=== PATIENT | female | born 1975 | race Caucasian/White ===

== ENCOUNTER 2016-08-04 05:11 | Day surgery (SDC) | payer OTHER ==
[2016-07-31 12:20] LABS: BASOPHILS 0.3 %; BASOPHILS ABSOLUTE 0.02 10/3/uL (0.0-0.16); EOSINOPHILS 1.5 %; HEMATOCRIT 40.5 % (36.0-48.0); HEMOGLOBIN 13.3 g/dL (12.0-16.0); IMMATURE GRANULOCYTES 0.2 %; IMMATURE GRANULOCYTES ABSOLUTE 0.01 10/3/uL (0.0-0.11); LYMPHOCYTES 23.1 %; MEAN CORPUS HGB CONC 32.8 g/dL (32.0-36.0); MEAN CORPUSCULAR HEMOGLOB 31.6 pg (26.0-34.0); MEAN CORPUSCULAR VOLUME 96.2 fL (80-100); MEAN PLATELET VOLUME 11.8 fL (9.2-13.0); MONOCYTES ABSOLUTE 0.52 10/3/uL (0.21-1.20); NEUTROPHILS 66.9 %; NEUTROPHILS ABSOLUTE 4.34 10/3/uL (2.02-8.40); PLATELET COUNT 241 10/3/uL (150-400); RED CELL COUNT 4.21 10/6/uL (4.0-5.6)
[2016-07-31 12:22] LABS: MANUAL DIFF NO %; WHITE BLOOD CELLS 6.5 10/3/uL (4.5-10.5)
[2016-07-31 12:36] LABS: A/G RATIO 1.1 (0.7-1.9); ALBUMIN 3.9 G/DL (3.5-5.0); ALKALINE PHOSPHATASE 68 U/L (45-117); BUN (BLOOD UREA NITROGEN) 16 MG/DL (6-23); CALCIUM, SERUM 9.1 MG/DL (8.5-10.4); CHLORIDE, SERUM 107 MMOL/L (96-112); CO2 (CARBON DIOXIDE) 27 MMOL/L (24-34); CREATININE 0.76 MG/DL (0.55-1.02); GFR AFRICAN AMERICAN 114 ML/MIN (>=60); GFR NON AFRICAN AMERICAN 98 ML/MIN (>=60); GLOBULIN 3.4 G/DL (2.5-4.1); GLUCOSE, SERUM 74 MG/DL (60-99); POTASSIUM, SERUM 3.9 MMOL/L (3.5-5.3); SGOT(AST) 15 U/L (5-40); SGPT(ALT) 20 U/L (5-65); SODIUM, SERUM 141 MMOL/L (135-148); TOTAL BILIRUBIN 0.4 MG/DL (0-1.2); TOTAL PROTEIN 7.3 G/DL (6.0-8.5)
--- NOTE | ~2016-08-04 | PREOPHP ---
PreOp History and Physical [address] [place]. [address] NAME: KOLBY RUIZ : 77 STATUS : REG [facility]#: [id number] AGE: 41 ADM/REG DATE : 08/04/16 MR#: [id number] REPORT SERV DATE: 08/04/16 DICTATED BY: JOSSY PIMENTEL III DATE: 06/30/16 REPORT STATUS : Draft TRANSCRIBED BY: MODEl DATE: 06/30/16 HISTORY OF PRESENT ILLNESS: This 41-year-old female comes to the operating room for repair of a symptomatic ventral hernia. The patient has a tender mass over her anterior abdomen. This is located about 3 cm above the navel and just to the left of the midline. The mass is symptomatic in terms of local pain and discomfort. That has been present for one year. That has been increasing in size. The patient states the mass is occasionally reducible. This is felt most likely to be a chronically incarcerated epigastric ventral hernia, versus less likely a lipoma. The patient comes now for repair of the hernia or resection of a lipoma if found. PAST MEDICAL HISTORY: 1. Hypothyroidism. 2. Anxiety. MEDICATIONS: 1. Levothyroxine. 2. Fluoxetine. ALLERGIES: NONE. PAST SURGICAL HISTORY: 1. Status post breast augmentation. 2. section. FAMILY HISTORY: Positive for diabetes. SOCIAL HISTORY: No tobacco or alcohol use. REVIEW OF SYSTEMS: The patient complains of weight gain. Her 14-point review of systems is otherwise unremarkable. PHYSICAL EXAMINATION: GENERAL: This is a female, in no acute distress. She is alert and oriented x3. VITAL SIGNS: Blood pressure 108/71, pulse 69, and temperature 97.1. HEENT: Unremarkable. Cranial nerves 2 through 12 are normal. LUNGS: Clear. CARDIAC: Normal. ABDOMEN: Soft and nontender except for tender mass just above the navel slightly to the midline. It is partly, but not completely reducible. EXTREMITIES: Normal. ASSESSMENT: 1. A 41-year-old female with tender, probably chronic incarcerated epigastric ventral PreOp History and Physical [address] [place]. [address] NAME: KOLBY RUIZ : 77 STATUS : REG [facility] [place] PAT#: [id number] AGE: 41 ADM/REG DATE : 08/04/16 MR#: [id number] REPORT SERV DATE: 08/04/16 DICTATED BY: JOSSY PIMENTEL III DATE: 06/30/16 REPORT STATUS : Draft TRANSCRIBED BY: CLARICE DATE: 06/30/16 hernia, versus less likely lipoma. 2. Hypothyroidism. 3. Anxiety. PLAN: The patient comes to the operating room now for repair of this hernia versus resection of a mass if identified, depending on operative findings. This procedure, the risks, benefits, and alternatives, including not limited to the risk for bleeding, infection, enterotomy, injury to any abdominal structure, recurrence of the hernia if present, seroma formation, hematoma formation, and unforeseen complications including deep venous thrombosis, pulmonary embolus, myocardial infarction, stroke, pneumonia, and , have been explained to the patient fully. Her questions have been answered. She clearly understands the risks and agrees to surgery as planned. RHJ/CLARICE Jossy Pimentel III, M.D. / [id number]
--- NOTE | ~2016-08-04 | OP ---
Record Of Operation [facility] [address] [place]. [address] NAME: KOLBY RUIZ : 77 [place]US [place] [facility] [place]#: [id number] AGE: 41 ADM/REG DATE : 08/04/16 MR#: [id number] REPORT SERV DATE: 08/04/16 DICTATED BY: JOSSY BLAKE III DATE: 08/04/16 REPORT STATUS : Draft TRANSCRIBED BY: MODEl DATE: 08/04/16 DATE OF PROCEDURE: 08/04/2016 PREOPERATIVE DIAGNOSIS: Symptomatic ventral hernia. POSTOPERATIVE DIAGNOSIS: Symptomatic ventral hernia. PROCEDURE: Repair of ventral hernia or epigastric hernia. SURGEON: Jossy Blake M.D. ANESTHESIA: General with intubation. COMPLICATIONS: None. ESTIMATED BLOOD LOSS: Less than 5 mL. SPECIMENS: None. DRAINS: None. LAP AND SPONGE COUNT: Correct x3. BRIEF HISTORY: This 41-year-old female presented with a symptomatic ventral or epigastric hernia, located several centimeters above the navel. It was felt that repair of this was indicated. This procedure, the risks, benefits, and alternatives including, but not limited to the risk for bleeding, infection, enterotomy, injury to any abdominal structure, postop small bowel obstruction, ileus, seroma formation, hematoma formation, recurrence of the hernia, possible need for use of mesh, risk of infection of the mesh or enterocutaneous fistula requiring removal of the mesh, and unforeseen complications including deep venous thrombosis, pulmonary embolus, myocardial infarction, stroke, pneumonia, and were fully explained to the patient prior to surgery. Her questions were answered. She understood the risks and agreed to the surgery as planned. FINDINGS: The patient had a small ventral or epigastric hernia with incarcerated preperitoneal fat, located several centimeters above the navel. The fascial defect itself was small and mesh repair was not required. DESCRIPTION OF PROCEDURE: After being properly identified and after discussing the risks and benefits of surgery with the patient and family again in the preoperative area, and carefully marking the hernia with a skin marker with her help in the preoperative area, the patient was taken to the operating room and placed in the supine position on the operating room table. General anesthesia was administered, and she was intubated without difficulty. The abdomen was prepped and draped sterilely in the usual fashion. After an appropriate "time-out" per [facility] standards, a small vertical incision was made directly over the hernia in the midline several centimeters above the navel. The incision was continued through the Record Of Operation [address] [place]. [address] NAME: KOLBY RUIZ : 77 [place]US : [place] [facility] [place]#: [id number] AGE: 41 ADM/REG DATE : 08/04/16 MR#: [id number] REPORT SERV DATE: 08/04/16 DICTATED BY: JOSSY BLAEK III DATE: 08/04/16 REPORT STATUS : Draft TRANSCRIBED BY: MODEl DATE: 08/04/16 subcutaneous tissue. Hemostasis was controlled with the cautery. We identified a chronically incarcerated ventral or epigastric hernia. The fascial defect itself was fairly small, perhaps 0.5 cm in size. There was some preperitoneal fat which was chronically incarcerated within this. Using sharp dissection, the hernia sac and preperitoneal fat was dissected free from the surrounding tissues. This hernia sac and preperitoneal fat was amputated at the level of the fascia between the hemostats. The base of it was ligated with a 2-0 silk ligature. The base was then reduced back in the abdominal cavity. The skin and subcutaneous tissue around the defect anteriorly was fully mobilized for several centimeters. The underside of the fascia was palpated and inspected to be certain that there was no bowel beneath this. Hemostasis was assured. Once this was assured, the fascial edges were reapproximated with interrupted 0 Prolene sutures. The fascia came together nicely with no tension. Hemostasis was assured. It was clear that mesh was not required. The subcutaneous tissue was closed with a running 3-0 chromic suture. The skin was closed with running subcuticular 4-0 Monocryl stitch. The incision was injected with 0.5% Marcaine. Dressings were applied. Anesthesia was reversed. The patient was taken to the recovery room in stable condition. She tolerated the procedure well. Her family was informed the results of the surgery. The patient will be discharged in stable and comfortable. Her family was advised that she should keep the wound clean and dry for 48 hours, that she should not drive for three to four days after surgery or while using narcotics that she should resume her usual medications and that she should not perform any heavy lifting for four to five weeks. She has been asked to return to the office in two weeks for followup or sooner if any fever, chills, wound drainage, or other problems prior to that time. She was given prescription for Percocet 7.5 one t.i.d., #12, as needed for pain, which she was advised not to use while driving. RHJ/MODL Jossy Blake III, M.D. / [id number] CC: Violet Renee III, M.D.
[~2016-08-04 05:11] MED LIST: SYN125 PO
== END 2016-08-04 17:51 | disposition home or self-care (01) ==
LOC: SDC 05:11
PROVIDERS: Surgery
PROC: 0WQF0ZZ Repair Abdominal Wall, Open Approach (ICD-10-PCS; principal; 2016-08-04 06:45)
DX: K43.6 Other and unspecified ventral hernia with obstruction, without gangrene (principal); E03.9 Hypothyroidism, unspecified; F41.9 Anxiety disorder, unspecified; Z79.899 Other long term (current) drug therapy; Z98.890 Other specified postprocedural states; Z83.3 Family history of diabetes mellitus
CPT/HCPCS: 71020; 80053; 84703; 85025; 87641; 88302; 93005; J0690; J2250; J2270; J2405; J2710; J3010